=== PATIENT | female | born 1990 | race Caucasian/White ===

== ENCOUNTER 2017-08-26 18:00 | Emergency (ER) | payer BC, SELFPAY ==
[2017-08-26 18:39] LABS: #Eosinphils 1.6 thou/uL (0.0-0.7); #Lymphocytes 0.9 thou/uL (1.20-3.40); #Monocytes 0.2 thou/uL (0.11-0.59); #Neutrophils 8.1 thou/uL (1.40-6.50); %Basophils 0.2 % (0.0-1.0); %Eosinophils 15.1 % (0.0-10.0); %Lymphocytes 8.2 % (21.0-51.0); %Neutrophils 74.5 % (42.0-75.0); Hemoglobin 13.6 g/dL (12.0-16.0); Mean Corpuscular HGB CONC 34.5 g/dL (32.0-36.0); Mean Corpuscular Hemoglobin 29.9 pg (27.0-31.0); Mean Corpuscular Volume 86.4 fl (81.0-99.0); Mean Platelet Volume 5.8 fL (7.4-10.4); Platelet Count 290 thou/uL (130-400); RBC Distribution Width 11.6 % (11.5-14.5); Red Blood Cell (RBC) Count 4.54 mill/uL (4.20-5.40); White Blood Cell (WBC) Count 10.9 thou/uL (4.8-10.8)
[2017-08-26 18:43] LABS: Bilirubin Negative (Negative); Blood, Urine Negative (Negative); Clarity CLEAR (Clear); Glucose, Urine (Dipstick) Negative (Negative); Leukocyte Small (Negative); Nitrite Negative (Negative); Protein, Urine (Dipstick) Negative (Neg-Trace); Specific Gravity, Urine 1.005 (1.002-1.036); Urobilinogen 0.2 mg/dL (0.2-1.0)
[2017-08-26 18:45] LABS: Bacteria/HPF Rare-Few HPF (None Seen); Hyaline Casts/LPF 0-3 HYALINE CAST LPF (0-3 Hyaline); Pathc Cast-AUWi Flag 0.27 (0-2.49); RBC/HPF 0-3 HPF (0-3)
[2017-08-26 18:48] LABS: BHCG - Serum Negative (NEGATIVE); Pregs Control Background? CLEAR/WHITE (CLR/WHITE); Pregs Control Bar Appear? YES (CONTROL BAR)
[2017-08-26 19:02] LABS: ALT (SGPT) 18 U/L (8-55); AST (SGOT) 17 U/L (5-34); Albumin 4.3 g/dL (3.5-5.0); Alkaline Phosphatase 123 U/L (40-150); Anion Gap 12 mmol/L (10-20); BUN (Urea Nitrogen) 6 mg/dL (7.0-18.7); Bilirubin, Total 0.4 mg/dL (0.2-1.2); Calc. Creatinine Clearance 0 mL/min (70-130); Calcium 9.5 mg/dL (7.8-10.44); Carbon Dioxide 23 mmol/L (22-29); Chloride 106 mmol/L (98-107); Estimated GFR-MDRD Greater than 90; Globulin 2.9 g/dL (2.4-3.5); Glucose 137 mg/dL (70-105); Lipase 22 U/L (8-78); Potassium 3.5 mmol/L (3.5-5.1); Protein, Total 7.2 g/dL (6.0-8.3); Sodium 137 mmol/L (136-145)
[2017-08-26] MEDS ORDERED: Ondansetron HCl/PF 4 MG/2 ML Vial ONE (19:40)
[2017-08-26] MEDS ORDERED: Promethazine HCl 25 MG/ML VIAL ONE (20:39)
[2017-08-26] MEDS ORDERED: Pantoprazole 40 MG VIAL ONE (20:39)
[2017-08-26] MEDS ORDERED: Ketorolac Tromethamine 30 MG/ML VIAL ONE (21:30)
--- NOTE | 2017-08-26 23:21 | CT ---
CT ABDOMEN AND PELVIS WITH CONTRAST: History: Abdominal pain, vomiting. Comparison: None. FINDINGS: Lung bases are clear. No pericardial effusion. Prior cholecystectomy. The appendix is visualized and is normal. Spleen is enlarged measuring 15 cm. No hydronephrosis. Hypodensity is present in the left ovary sugge stive of a cyst. No significant free intraperitoneal fluid. No free intraperitoneal gas. The splenic vein is somewhat dilated. Portal vein is patent. There is a mildly thick walled distal ileum. There are also a few mildly thickened loops of proximal small bowel. No evidence for colitis. No dilated loops of large or small bowel. IMPRESSION: 1. Normal appendix. 2. A few scattered proximal and distal small bowel loops of wall thickening suggesting low grade ente ritis. 3. Mild splenomegaly and dilatation of the splenic vein. Portal vein is patent. POS: JACOB
== END 2017-08-26 23:58 | disposition home or self-care (01) ==
LOC: ERS 18:00
DX: K52.9 Noninfective gastroenteritis and colitis, unspecified (principal)
CPT/HCPCS: 36415; 74176; 74177; 80053; 81003; 81015; 83690; 84703; 85025; 96361; 96374; 96375; C9113; J1885; J2405; J2550